=== PATIENT | female | born 1960 | race Caucasian/White ===

== ENCOUNTER 2016-11-24 15:43 | Emergency (ER) | payer BC ==
[2016-11-24 15:52] VITALS: RESP 18
--- NOTE | 2016-11-24 16:03 | EDPHY ---
H & P Time Seen by Provider: 11/24/16 15:57 HPI/ROS: CHIEF COMPLAINT: Left shoulder injury post mechanical fall HISTORY OF PRESENT ILLNESS: 56-year-old female arrives via private vehicle complaining of acute left shoulder injury and pain after she sustained a mechanical fall, stepped into a small hole fell onto her left knee and left shoulder. Sustained abrasion to left knee. Full weight-bearing left knee with no knee pain. Complaining of reproducible left shoulder pain with range of motion. No paresthesia, sensory deficit. Tetanus up-to-date. Occurred shortly prior to arrival. No head injury. No midline C-spine pain. No back pain. No chest pain. REVIEW OF SYSTEMS: A ten point review of systems was performed and is negative with the exception of the items mentioned in the HPI PAST MEDICAL/SURGICAL HISTORY: no anticoagulant use, no relevant medical/ surgical history SOCIAL HISTORY: Visiting from [place] PHYSICAL EXAM 1) GENERAL: Well-developed, well-nourished, alert and oriented. Appears to be in no acute distress. Answering questions appropriately. 2) HEAD: Normocephalic, atraumatic 3) HEENT: Pupils equal, round, reactive to light bilaterally. Negative Horners. Nasopharynx, oropharynx, clear. No deformity or angulation of nose. No septal hematoma. No rhinorrhea. No oral trauma. Ears bilaterally with normal tympanic membranes. No hemotympanum. No fluid or blood in the external auditory canal. No raccoon eyes. No Landin sign. 4) NECK: No cervical collar is on. Posterior cervical spine is nontender, no stepoff, no effusion. Full range of motion which does not elicit any midline cervical spine pain, no posterior midline tenderness, no step-off. 5) LUNGS: Clear to auscultation bilaterally, no wheezes, no rhonchi, no retractions. No obvious signs of trauma. No chest wall pain. No flaring, no grunting. Moving symmetrically. No crepitus. 6) HEART: Regular rate and rhythm, 7) ABDOMEN: No guarding, no rebound, no focal tenderness, no peritoneal signs, no signs of trauma, no ecchymosis 8) MUSCULOSKELETAL: Left upper extremity: No visible signs of trauma. Tender to palpation anterior shoulder. No step-off. No crepitus. Reproducible pain with passive and active range of motion to the left shoulder. Distal humerus, elbow and remainder of left upper extremity nontender with radial ulnar median nerve function intact. Left lower extremity: Abrasion to the anterior aspect of the knee with full pain-free range of motion ,, full weight-bearing. Otherwise , Moving all extremities, no focal areas of tenderness, no obvious trauma. 9) BACK: No midline vertebral tenderness, no fluctuance, no step-off, no obvious trauma, no visual or palpable abnormality. 10) SKIN: No laceration. DIFFERENTIAL DIAGNOSIS: in no particular order including but not limited to fracture, dislocation, sprain, strain Smoking Status: Never smoked Constitutional: Initial Vital Signs Temperature (C) 37.5 C 11/24/16 15:49 Heart Rate 81 11/24/16 15:49 Respiratory Rate 18 11/24/16 15:49 Blood Pressure 143/97 H 11/24/16 15:49 O2 Sat (%) 95 11/24/16 15:49 O2 Delivery Mode Room Air Allergies/Adverse Reactions: No Known Allergies Allergy (Unverified 11/24/16 15:53) MDM/Departure - MDM Imaging: I viewed and interpreted images myself Procedures: Procedure: Splint Left upper extremity sling was applied by ER lube technician. After application of the splint I returned and re-examined the patient. The splint was adequately immobilizing the joint and distal to the splint the patient's circulation and sensation were intact. Patient shows no signs of compartment syndrome. Was given orthopedic precautions. ED Course/Re-evaluation: Care of patient under supervision of secondary supervising physician Dr Mccallum. I reviewed the patient's x-rays with her showing a fracture of the greater tuberosity of the left humerus. She is visiting from [facility] tomorrow and has a pre-existing appointment with her orthopedic surgeon on Thursday (today is Thursday) for her left knee. I recommend she discuss her acute findings of a greater tuberosity fracture. She has been placed in a sling, given prescription for analgesia, given usual and customary orthopedic precautions and instructions. She feels comfortable being discharged home. - Depart Disposition: Home, Routine, Self-Care Clinical Impression: Fracture of greater tuberosity of left humerus Qualifiers: Encounter type: initial encounter Fracture type: closed Fracture alignment: nondisplaced Qualified Code(s): S42.255A - Nondisplaced fracture of greater tuberosity of left humerus, initial encounter for closed fracture Condition: Good Instructions: Arm Fracture in Adults (ED) Additional Instructions: Return to the ER immediately if you experience discoloration, have worsening pain, numbness, tingling, or any other symptoms that concern you. If you received x-rays in the emergency department today, be advised, that ligamentous , tendon, muscular, and other non-bony injury cannot be fully ruled out. Try to keep your affected extremity elevated above the level of your chest, and keep cold packs on the affected area, for the next 48 hours. Referrals: Keep, your appointment with the orthopedic surgeon in [facility] [Other] - As per Instructions Krunal Schrader MD [Medical Doctor] - 2-3 days, call for appt. (Dr Schrader is a [facility] orthopedic surgeon)
[2016-11-24 17:18] VITALS: BP 125/69; PULSE 80; TEMP 97.7; O2SAT 96
== END 2016-11-24 17:16 | disposition home or self-care (01) ==
DX: S42.255A Nondisplaced fracture of greater tuberosity of left humerus, initial encounter for closed fracture (principal); W18.42XA Slipping, tripping and stumbling without falling due to stepping into hole or opening, initial encounter; Y99.8 Other external cause status; Y93.89 Activity, other specified
CPT/HCPCS: A4565